=== PATIENT | male | born 1985 | race Caucasian/White ===

== ENCOUNTER 2017-02-17 19:23 | Emergency (ER) | payer SELFPAY ==
[2017-02-17] MEDS ORDERED: Tetan/Diph/Pertus SYR(Tdap)* 0.5 ML SYR(BOOSTRIX) use SYR IM ONE (20:51)
--- NOTE | 2017-02-17 21:02 | UC ---
Laceration HPI - HPI Summary HPI Summary: Tripped into edge of broken mirror earlier this evening, now has laceration to L ankle/foot. - History Of Current Complaint Chief Complaint: UCLaceration Stated Complaint: FOOT LACERATION Time Seen by Provider: 02/17/17 20:46 Hx Obtained From: Patient Laceration Location: Foot Mechanism Of Injury: Sharp Trauma Onset/Duration: Sudden Onset Severity: Moderate Aggravating Factors: Movement - Allergies/Home Medications Allergies/Adverse Reactions: Allergies Allergy/AdvReac Type Severity Reaction Status Date / Time No Known Allergies Allergy Verified 02/17/17 20:38 PMH/Surg Hx/FS Hx/Imm Hx Endocrine History Of: Denies: Diabetes Cardiovascular History Of: Denies: Cardiac Disorders, Hypertension Respiratory History Of: Denies: Asthma - Surgical History Surgical History: Yes Surgery Procedure, Year, and Place: right ankle surgery - Family History Known Family History: Negative: Blood Disorder - Social History Occupation: Employed Full-time Alcohol Use: None Substance Use Type: None Smoking Status (MU): Never Smoked Tobacco Review of Systems Constitutional: Negative Skin: Other - L foot lac Eyes: Negative ENT: Negative Respiratory: Negative Cardiovascular: Negative Gastrointestinal: Negative Genitourinary: Negative Motor: Negative Neurovascular: Negative Musculoskeletal: Negative Neurological: Negative Psychological: Negative All Other Systems Reviewed And Are Negative: Yes Physical Exam Triage Information Reviewed: Yes Appearance: Well-Appearing, Well-Nourished Vital Signs: Initial Vital Signs Temp 97.9 F 02/17/17 20:34 Pulse 100 02/17/17 20:34 Resp 16 02/17/17 20:34 BP 121/72 02/17/17 20:34 Pulse Ox 97 02/17/17 20:34 Vital Signs Reviewed: Yes Eye Exam: Normal ENT Exam: Normal ENT: Positive: Normal ENT inspection, Hearing grossly normal, Pharynx normal, TMs normal Dental Exam: Normal Neck exam: Normal Neck: Positive: Supple, Nontender, No Lymphadenopathy Respiratory Exam: Normal Respiratory: Positive: Chest non-tender, Lungs clear, Normal breath sounds, No respiratory distress, No accessory muscle use Cardiovascular Exam: Normal Cardiovascular: Positive: RRR, No Murmur Musculoskeletal: Positive: Strength Intact, ROM Intact Neurological Exam: Normal Neurological: Positive: Alert Psychological Exam: Normal Laceration Course/Dx - Differential Dx - Laceration/Wound Provider Diagnoses: L foot laceration. possible L tendon laceration Discharge - Discharge Plan Condition: Stable Disposition: HOME Patient Education Materials: Tendon Laceration (ED) Referrals: Joshua Lawrence MD [Medical Doctor] - Additional Instructions: Though there is no visible tendon laceration, your wound is deep enough and it is a high risk area. Please follow up with the orthopedist within the next 2 days (call tomorrow morning for the next available appointment). Keep the boot on all the time until you see the orthopedist.
[2017-02-17] MEDS ORDERED: ceFAZolin 500 MG VIAL(*) 500 MG VIAL IM ONE (21:05)
[2017-02-17] MEDS ORDERED: Lidocaine 2% PF * 5 ML VIAL INJ ONE (21:06)
--- NOTE | 2017-02-17 21:46 | RAD ---
HISTORY: Left foot left foot laceration COMPARISONS: None VIEWS: 3, Frontal, lateral, and oblique views of the left foot FINDINGS: BONE DENSITY: Normal. BONES: There is no displaced fracture. JOINTS: There is no arthropathy. ALIGNMENT: There is no dislocation. SOFT TISSUES: There is soft tissue irregularity dorsally consistent with the history of laceration. OTHER FINDINGS: There is no radiopaque foreign body IMPRESSION: NO ACUTE OSSEOUS INJURY. IF SYMPTOMS PERSIST, RECOMMEND REPEAT IMAGING.
--- NOTE | 2017-02-17 22:08 | UC ---
I, Dom Rosa, scribed for Carly Miramontes MD on 02/17/17 at 2101 . Progress - Progress Note Progress Note: Asked by Mona Grigsby NP to consult regarding Violeta Mcdaniel, a 31 yo male presenting to [facility] with a laceration to the top of his left foot causing him 3/ 10 pain. He states he had a broken mirror lying next to his wall when he slipped at 1900 tonight and hit his foot on the broken mirror. He denies any PMHx. Pt has exposed fascia in 4cm deep laceration dorsum left ankle, over talus. Pt has full ROM, good dorsiflexion and plantar flexion, but is in pain with motion. He has no bony tenderness and bleeding is controlled. Pt has good pulses PT, and DP and brisk capillary refill. Wound is irrigated with 800cc sterile NS, given cephazolin 1gm IM, xrayed and suturing is done by Mona Grigsby NP. Left Foot XR: IMPRESSION: NO ACUTE OSSEOUS INJURY. IF SYMPTOMS PERSIST, RECOMMEND REPEAT IMAGING. 2107 - Dr. Lawrence (ortho) - discussed Pt condition, Pt can call tomorrow morning for appointment. Recommends immobilization via CAM boot and crutches and antibiotics and tetanus. - EKG/XRAY/CT XRAY: left foot Xray Comments: Impression: no acute osseus injury - Consult/PCP Time Called: 21:08 Consult/PCP: Dr. Lawrence (orthopedics) Consult Reason/Comments: Discussed Pt condition Re-Evaluation - Re-Evaluation First Eval Re-Evaluation Time: 21:14 Change: Unchanged Comment: Pt is informed of plan to X-ray his left foot, and is agreeable to this course of Tx. The documentation as recorded by the ron ortega Timothy accurately reflects the service I personally performed and the decisions made by me, Carly Miramontes MD.
[2017-02-17] MEDS ORDERED: Cephalexin CAP* 500 MG PO ONE (22:11)
[2017-02-17 23:09] VITALS: BP 119/81
== END 2017-02-17 23:09 | disposition home or self-care (01) ==
LOC: UCEAST 19:23
DX: S91.312A Laceration without foreign body, left foot, initial encounter (principal); W25.XXXA Contact with sharp glass, initial encounter
CPT/HCPCS: 12002; 12020; 90471; 90715; 99203; 99204; A9270-GY; G0463; J0690